=== PATIENT | female | born 1960 | race Caucasian/White ===

== ENCOUNTER 2018-03-26 08:40 | Day surgery (SDC) | payer OTHER ==
[~2018-03-26 08:40] MED LIST: BUPIVACAINE 0.5% (SDV) 30 ML, morphine SULFATE (PF) 8 MG, EPINEPHrine 0.3 MG, KETOROLAC... IRR; TRANEXAMIC ACID 1,000 MG in DEXTROSE 5% 100 ML IVPB
[2018-03-26] MEDS: DEXAMETHASONE 1 MG TAB PO (09:36)
[2018-03-26] MEDS: GABAPENTIN 300 MG CAP PO (09:36)
[2018-03-26] MEDS: VANCOMYCIN 1 GM (PMX) 250 ML IVPB (09:36)
[2018-03-26] MEDS ORDERED: DIPHENHYDRAMINE 50 MG INJ (10:58)
[2018-03-26] MEDS ORDERED: MIDAZOLAM 1 MG/ML 2 ML INJ (11:12)
[2018-03-26] MEDS ORDERED: BUPIVACAINE 0.25% (MPF) 30 ML INJ (11:13)
[2018-03-26] MEDS ORDERED: CEFAZOLIN 1 GM INJ (11:24)
[2018-03-26] MEDS ORDERED: LIDOCAINE 2% (SDV) 5 ML INJ (12:08)
[2018-03-26] MEDS ORDERED: GLYCOPYRROLATE 0.4 MG INJ (12:08)
[2018-03-26] MEDS ORDERED: PROPOFOL 20 ML (12:08)
[2018-03-26] MEDS ORDERED: ROCURONIUM 50 MG INJ (12:08)
[2018-03-26] MEDS ORDERED: NEOSTIGMINE 3 MG/3 ML SYRINGE (12:08)
[2018-03-26] MEDS ORDERED: ONDANSETRON 4 MG INJ (12:09)
[2018-03-26] MEDS ORDERED: FENTAnyl 50 MCG/ML VIAL IV (12:30)
[2018-03-26] MEDS ORDERED: ONDANSETRON 4 MG INJ IV (12:30)
[2018-03-26] MEDS ORDERED: METOCLOPRAMIDE 10 MG INJ IV (12:30)
[2018-03-26] MEDS ORDERED: LABETALOL HCL 20MG INJ IV (12:30)
[2018-03-26] MEDS ORDERED: DIPHENHYDRAMINE 50 MG INJ IV (12:30)
[2018-03-26] MEDS ORDERED: hydrALAzine 20 MG INJ IV (12:30)
== END 2018-03-26 17:00 | disposition home or self-care (01) ==
LOC: SDS 08:40
DX: M65.812 Other synovitis and tenosynovitis, left shoulder (principal); Z86.718 Personal history of other venous thrombosis and embolism
CPT/HCPCS: 29820; 88304